=== PATIENT | male | born 1940 | race Caucasian/White ===

== ENCOUNTER 2019-05-02 14:07 | Outpatient (CLI) | payer MEDICARE, OTHER ==
--- NOTE | 2019-05-05 10:27 | XRAY Report ---
Reason: PAIN EDEMA L FOREFOOT X MONTHS Procedure Date: 05/02/2019 Accession Number: [id number] / [id number] Procedure: XR - Foot 3 View LT CPT Code: FULL RESULT: EXAM: LEFT FOOT RADIOGRAPHY EXAM DATE: 05/02/2019 02:27 PM. CLINICAL HISTORY: Pain. Edema left forefoot x months. COMPARISON: None. TECHNIQUE: 3 views. FINDINGS: Bones: No acute fracture or bone lesion. Joints: Minor bunion deformity. Mild to moderate degenerative arthrosis of the first MTP joint. Soft Tissues: Spurring at the attachment of the plantar aponeurosis upon the calcaneus. IMPRESSION: No acute fracture. Mild bunion deformity with mild to moderate degenerative arthrosis of the first MTP joint. Calcaneal spurring at the attachment of the plantar aponeurosis. [facility]
== END 2019-05-02 14:08 | disposition home or self-care (01) ==
LOC: DI 14:07
PROVIDERS: ATTEND Podiatrist
DX: M19.072 Primary osteoarthritis, left ankle and foot (principal); M21.612 Bunion of left foot; M77.32 Calcaneal spur, left foot

== ENCOUNTER 2020-11-11 11:04 | Outpatient (CLI) | payer MEDICARE, OTHER ==
--- NOTE | 2020-11-11 13:52 | XRAY Report ---
PROCEDURE: Knee 3 View RT INDICATIONS: pain TECHNIQUE: 3 views of the right knee(s) were acquired. COMPARISON: None. FINDINGS: Bones: No fractures or dislocations. No suspicious bony lesions. Mild tricompartmental periarticul ar osteophyte formation. Soft tissues: No joint effusion. No suspicious soft tissue calcifications. IMPRESSION: Osteoarthritis. No acute fracture. No osseous lesion. If symptoms and/or clinical suspic ion for pathology continue, further assessment with repeat plain films, or advanced imaging (e.g., CT , MRI, or bone scan) is recommended for further assessment. Reviewed by: Krista Alvarado MD on 11/11/2020 12:51 PM [place] Approved by: Krista Alvarado MD on 11/11/2020 12:51 PM [facility] Station ID: [id number]
--- NOTE | 2020-11-11 13:52 | XRAY Report ---
PROCEDURE: Hip w/Pelvis 2-3V RT INDICATIONS: PAIN TECHNIQUE: AP pelvis with lateral view(s) of the bilateral hip(s). COMPARISON: None. FINDINGS: Bones: No fractures or dislocations. Pelvic ring appears intact. No suspicious bony lesions. Mild bilateral hip joint space narrowing and periarticular osteophyte formation. Soft tissues: The visualized bowel gas pattern is normal. No suspicious soft tissue calcifications. IMPRESSION: Bilateral hip osteoarthritis. No acute fracture. No osseous lesion. If symptoms and/or cl inical suspicion for pathology continue, further assessment with repeat plain films, or advanced imag ing (e.g., CT, MRI, or bone scan) is recommended for further assessment. Reviewed by: Krista Alvarado MD on 11/11/2020 12:51 PM [facility] Approved by: Krista Alvarado MD on 11/11/2020 12:51 PM [facility] Station ID: [id number]
--- NOTE | 2020-11-11 15:47 | Ultrasound Report ---
PROCEDURE: Abdomen Complete INDICATIONS: EPIGASTRIC PAIN TECHNIQUE: Real-time scanning was performed of the abdominal and retroperitoneal organs, with image documentatio n. COMPARISON: 05/20/2016 FINDINGS: Liver: Liver is normal in size and homogeneous in echotexture. Gallbladder: Is within normal limits Biliary ducts: There is possible left lobe biliary ductal dilatation, as before. Extrahepatic bile du ct caliber measures 2 mm. Normal is 6-7 mm or less in diameter, or 10 mm or less post-cholecystectom y. Pancreas: Visualized portions of the pancreas are sonographically normal. Spleen: Spleen is normal in size and homogeneous in echotexture. Kidneys: Kidneys are normal in size and echotexture. Right kidney measures 10.2 cm long; left kidne y measures 10.4 cm long. No hydronephrosis or nephrolithiasis. No solid masses. Aorta: Distal abdominal aorta measures 52 mm which is decreased. Stent graft is present. Iliacs: Proximal common iliac arteries are normal in caliber at less than 2.5 cm. IVC: Intrahepatic inferior vena cava is patent. Miscellaneous: No free abdominal fluid. IMPRESSION: 1. No acute process. 2. Aortic stent graft placement. Reviewed by: Krista Alvarado MD on 11/11/2020 2:46 PM [place] Approved by: Krista Alvarado MD on 11/11/2020 2:46 PM [facility] Station ID: [id number]
== END 2020-11-11 11:05 | disposition home or self-care (01) ==
LOC: DI 11:04
PROVIDERS: ATTEND Internal Medicine
DX: R10.13 Epigastric pain (principal); M16.0 Bilateral primary osteoarthritis of hip; M17.11 Unilateral primary osteoarthritis, right knee; Z95.5 Presence of coronary angioplasty implant and graft

== ENCOUNTER 2024-05-12 11:13 | Outpatient (CLI) | payer MEDICARE, OTHER ==
--- NOTE | 2024-05-12 17:31 | CT Report ---
PROCEDURE: Head WO INDICATIONS: AMNESTIC DISORDER TECHNIQUE: Noncontrast 4.5 mm thick angled axial sections acquired from the foramen magnum to the vertex. For r adiation dose reduction, the following was used: automated exposure control, adjustment of mA and/or kV according to patient size. COMPARISON: None. FINDINGS: Image quality: Excellent. CSF spaces: Basal cisterns are patent. No extra-axial fluid collections. Ventricles are normal in size and shape. Brain: No midline shift. No intracranial masses or hemorrhage. Quintero-white matter interface is norm al. Skull and face: Calvarium and visualized facial bones are intact, without suspicious lesions. Sinuses: Visualized sinuses and mastoids are clear. IMPRESSION: Normal noncontrast head CT for age. Reviewed by: Theodore Knutson MD on 05/12/2024 3:51 PM [facility] Approved by: Theodore Knutson MD on 05/12/2024 3:51 PM [facility] Station ID: [id number]
== END 2024-05-12 11:14 | disposition home or self-care (01) ==
LOC: DI 11:13
PROVIDERS: ATTEND Internal Medicine
DX: F04 Amnestic disorder due to known physiological condition (principal)